=== PATIENT | male | born 1995 | race Hispanic/Latino ===

== ENCOUNTER 2024-05-26 08:14 | Emergency (ER) | payer SELFPAY ==
--- NOTE | 2024-05-26 08:42 | EDPHYS ---
Physician Documentation [facility] Name: Magdi Calixto Age: 29 yrs Sex: Male : 1995 Arrival Date: 05/26/2024 Time: 08:14 Bed 13 Private MD: ED Physician Chucky Deutsch HPI: 05/26 09:56 This 29 yrs old Male presents to ER via Ambulatory with complaints of Ear Pain.rt 09:56 Patient states that at work yesterday, he had the sensation of something flew into his rt left ear. Reports of pain, decreased hearing to that ear. Denies other acute complaints at this time, symptoms are mild in severity, aching nature, nonradiating, no other aggravating alleviating factors.. Historical: - Allergies: 08: No Known Allergies; hb - Home Meds: 08: None [Active]; hb - PMHx: 08: None; hb - PSHx: 08:25 None; hb - Immunization history:: Adult Immunizations up to date. - Infectious Disease History:: Denies. - Social history:: Smoking status: Patient reports the use of cigarette tobacco products, denies chronic smoking, but will smoke occasionally. - Family history:: not pertinent. ROS: 09:56 Constitutional: Negative for fever, chills, and weight loss, Cardiovascular: Negative rt for chest pain, palpitations, and edema, Respiratory: Negative for shortness of breath, cough, wheezing, and pleuritic chest pain, Abdomen/GI: Negative for abdominal pain, nausea, vomiting, diarrhea, and constipation, MS/Extremity: Negative for injury and deformity, Skin: Negative for injury, rash, and discoloration, 09:56 ENT: Positive for ear pain, Negative for rhinorrhea, Exam: 09:56 Constitutional: This is a well developed, well nourished patient who is awake, alert, rt and in no acute distress. Head/Face: Normocephalic, atraumatic. Chest/axilla: Normal chest wall appearance and motion. Nontender with no deformity. No lesions are appreciated. Cardiovascular: Regular rate and rhythm with a normal S1 and S2. No gallops, murmurs, or rubs. Normal PMI, no JVD. No pulse deficits. Respiratory: Lungs have equal breath sounds bilaterally, clear to auscultation and percussion. No rales, rhonchi or wheezes noted. No increased work of breathing, no retractions or nasal flaring. Abdomen/GI: Soft, non-tender, with normal bowel sounds. No distension or tympany. No guarding or rebound. No evidence of tenderness throughout. Skin: Warm, dry with normal turgor. Normal color with no rashes, no lesions, and no evidence of cellulitis. MS/ Extremity: Pulses equal, no cyanosis. Neurovascular intact. Full, normal range of motion. 09:56 ENT: Right TM effusion without erythema, left TM is bulging, erythematous, edematous. There are no signs of foreign body in the external auditory canal. Vital Signs: 08:24 BP 136 / 92; Pulse 81; Resp 16; Temp 98; Pulse Ox 100% ; Weight 108.86 kg; Height 5 ft. hb 7 in. ; Pain 8/10; 08:24 Body Mass Index 37.59 (108.86 kg, 170.18 cm) hb 08:24 Pain Scale: Adult hb MDM: 08:35 Medical Screening Exam initiated rt 09:56 Differential diagnosis: otitis media, otitis externa, foreign body. Data reviewed: rt vital signs, nurses notes. Counseling: I had a detailed discussion with the patient and/or guardian regarding the historical points, exam findings, and any diagnostic results supporting the discharge/admit diagnosis, the need for outpatient follow up, to return to the emergency department if symptoms worsen or persist or if there are any questions or concerns that arise at home. Administered Medications: No medications were administered Disposition Summary: 05/26/24 08:41 Discharge Ordered Notes: Location: Home rt Problem: new rt Symptoms: are unchanged rt Condition: Stable rt Diagnosis - Acute serous otitis media, left ear rt Followup: rt - With: Private Physician - When: 2 - 3 days - Reason: Discharge Instructions: - Discharge Summary Sheet rt - Otitis Media, Adult rt Forms: - Work release form hb - Medication Reconciliation Form rt - Antibiotic Education rt - Prescription Opioid Use rt - Patient Portal Instructions rt - Leadership Thank You Letter rt Prescriptions: - Amoxicillin 875 mg Oral Tablet - take 1 tablet ORAL route every 12 hours for 10 days; 20 tablet; Refills: 0, rt Product Selection Permitted Signatures: Elda Partida RN RN [place], Chucky, MD MD rt
--- NOTE | 2024-05-26 08:42 | ER ---
Nurse's Notes [facility] Name: Magdi Calixto Age: 29 yrs Sex: Male : 1995 Arrival Date: 05/26/2024 Time: 08:14 Bed 13 Private MD: Diagnosis: Acute serous otitis media, left ear Presentation: 05/26 08:24 Chief complaint: [place] something fly into left ear yesterday, now c/o decreased hearing hb and pain 8/10. Took Tylenol 1300 mg at 0500 today. Coronavirus screen: At this time, the client does not indicate any symptoms associated with coronavirus-19. Ebola Screen: No symptoms or risks identified at this time. Initial Sepsis Screen: Does the patient meet any 2 criteria? No. Patient's initial sepsis screen is negative. Does the patient have a suspected source of infection? No. Patient's initial sepsis screen is negative. Risk Assessment: Do you want to hurt yourself or someone else? Patient reports no desire to harm self or others. Onset of symptoms was May 25, 2024. 08:24 Method Of Arrival: Ambulatory hb 08:24 Acuity: MICHAEL 4 hb Triage Assessment: 08:25 General: Appears in no apparent distress. Behavior is calm, cooperative. Pain: Pain hb currently is 8 out of 10 on a pain scale. EENT: Reports decreased hearing left era pain. Neuro: GCS 15. Historical: - Allergies: 08:25 No Known Allergies; hb - Home Meds: 08:25 None [Active]; hb - PMHx: 08:25 None; hb - PSHx: 08:25 None; hb - Immunization history:: Adult Immunizations up to date. - Infectious Disease History:: Denies. - Social history:: Smoking status: Patient reports the use of cigarette tobacco products, denies chronic smoking, but will smoke occasionally. - Family history:: not pertinent. Screenin:[address] [facility] ED Fall Risk Assessment (Adult) History of falling in the last 3 months, hb including since admission No falls in past 3 months (0 pts) Confusion or Disorientation No (0 pts) Intoxicated or Sedated No (0 pts) Impaired Gait No (0 pts) Mobility Assist Device Used No (0 pt) Altered Elimination No (0 pt) Score/Fall Risk Level 0 - 2 = Low Risk Oriented to surroundings, Maintained a safe environment, Educated pt \T\ family on fall prevention, incl call for assistance when getting out of bed. Abuse screen: Denies threats or abuse. Denies injuries from another. Nutritional screening: No deficits noted. Tuberculosis screening: No symptoms or risk factors identified. Assessment: 08:26 General: See triage assessment . hb Vital Signs: 08:24 BP 136 / 92; Pulse 81; Resp 16; Temp 98; Pulse Ox 100% ; Weight 108.86 kg; Height 5 ft. hb 7 in. ; Pain 8/10; 08:24 Body Mass Index 37.59 (108.86 kg, 170.18 cm) hb 08:24 Pain Scale: Adult hb ED Course: 08:16 Patient arrived in ED. mr 08:23 Chucky Deutsch MD is Attending Physician. rt 08:25 Triage completed. hb 08:26 Arm band placed on. hb 08:36 Patient has correct armband on for positive identification. Provided Education on: use hb of call light . 08:36 Patient did not have IV access during this emergency room visit. hb 08:38 Elda Partida RN is Primary Nurse. hb 08:45 No provider procedures requiring assistance completed. hb Administered Medications: No medications were administered Medication: 08:36 VIS not applicable for this client. hb Outcome: 08:41 Discharge ordered by . rt 08:45 Discharged to home ambulatory, hb 08:45 Condition: stable 08:45 Discharge instructions given to patient, Instructed on discharge instructions, follow up and referral plans. medication usage, Demonstrated understanding of instructions, follow-up care, medications, Prescriptions given X 1, 08:46 Patient left the ED. hb Signatures: Buffy Zabala, Reg Reg mr Elda Partida, PRICE RN Chucky Deutsch MD MD rt
[2024-05-26 09:19] VITALS: BP 136/92; TEMP 98; O2SAT 100
== END 2024-05-26 08:46 | disposition home or self-care (01) ==
LOC: ER 08:14
DX: H65.02 Acute serous otitis media, left ear (principal); F17.210 Nicotine dependence, cigarettes, uncomplicated
CPT/HCPCS: 99283